=== PATIENT | male | born 2000 | race Two or more races ===

== ENCOUNTER → 2022-09-20 | Outpatient (CLI) | payer OTHER ==
[2022-09-20 22:40] LABS: COVID AG,FIA SOURCE NASAL SWAB
== END | disposition home or self-care (01) ==
LOC: LABMN 17:41
PROVIDERS: ATTEND Internal Medicine Cardiovascular Disease
DX: R69 Illness, unspecified (principal); Z20.822 Contact with and (suspected) exposure to COVID-19